=== PATIENT | female | born 1995 | race American Indian/Alaskan Native ===

== ENCOUNTER 2018-02-05 09:42 | Inpatient (IN) | payer MEDICAID ==
[2018-02-05] MEDS ORDERED: BRETHINE SUB-Q PRN (14:14)
[2018-02-05] MEDS ORDERED: BRETHINE IVP PRN (14:14)
[2018-02-05] MEDS ORDERED: XYLOCAINE 2% INFILTRATI ONE ×2 (14:14→22:18)
[2018-02-05] MEDS ORDERED: MINERAL OIL PO PRN (14:14)
[2018-02-05] MEDS ORDERED: ePHEDrine SULFATE IV PRN ×2 (14:14→22:29)
[2018-02-05 14:26] LABS: Hematocrit 39.8 % (30.3-42.9); Mean Corpuscular HGB Conc 33 % (30-34); Mean Corpuscular Volume 73 fl (79-97); Red Blood Count 5.44 M/mm3 (3.65-5.03)
[2018-02-05 14:27] LABS: Mean Corpuscular Hemoglobin 24 pg (28-32); Platelet Count 129 K/mm3 (140-440)
[2018-02-05] MEDS: STADOL IV PRN ×3 (14:35→20:55)
[2018-02-05] MEDS ORDERED: PITOCin/NS 30 UNIT/500ML 30 UNITS/500 ML BAG IV SCH ×2 (15:00→18:00)
[2018-02-05] MEDS ORDERED: LACTATED RINGERS 1,000 ML IV SCH ×2 (15:00→23:00)
--- NOTE | 2018-02-05 15:19 | Ultrasound Report ---
FINAL REPORT PROCEDURE: US OB BPP WO NON-STRESS TECHNIQUE: Sonographic evaluation for breathing, movement, tone, and amniotic fluid volume was performed. CPT 89414 HISTORY: BPP COMPARISON: No prior studies are available for comparison. FINDINGS: Amniotic fluid volume: Normal-score 2. At least one vertical pocket > 2 cm or more in vertical axis. breathing: Normal-score 2. movement: Score 0 tone: Normal- score 2. Score: 6 of 8. IMPRESSION: Decreased movement, with biophysical profile score of 6/8.
--- NOTE | 2018-02-05 15:21 | Ultrasound Report ---
FINAL REPORT PROCEDURE: US OB LIMITED TECHNIQUE: Real-time limited sonographic examination was performed for evaluation of fluid volume for each fetus with image documentation (1 or more fetuses). CPT 93471 HISTORY: BELLA COMPARISON: No prior studies are available for comparison. FINDINGS: FETUS IUP: Single living intrauterine . Position: Cephalic. Amniotic fluid volume: Amniotic fluid index measures 15.2 centimeters Heart rate and rhythm: 137 BPM, Regular . IMPRESSION: Amniotic fluid index measures 15.2 centimeters
--- NOTE | 2018-02-05 22:13 | History and Physical Report ---
History of Present Illness Date of examination: 02/05/18 Date of admission: 02/05/18 14:11 Chief complaint: contractions History of present illness: This is a 22 yo EDC 02/04/18 at 40=1 weeks came in for contractions. she was noted to be 1cm and rechecked and noted to be 2cm and pierre. She was admitted for NRFHT with variable decels and changing her cervix. 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 She is late to care patient with care initiating at at 17 weeks. She has a hx of chlamydia and anemia. Past History Past Medical History: hematologic disorders (anemia ) Past Surgical History: no surgical history [employer] History: chlamydia Family/Genetic History: none Social history: no significant social history, single. denies: smoking, alcohol abuse, prescription drug abuse - Obstetrical History Expected Date of Delivery: 02/04/18 Actual Gestation: 40 Week(s) 1 Day(s) : 1 Para: 0 Hx # Term Pregnancies: 0 Number of Pregnancies: 0 Spontaneous Abortions: 0 Induced : 0 Number of Living Children: 0 Medications and Allergies Allergies Allergy/AdvReac Type Severity Reaction Status Date / Time No Known Allergies Allergy Unverified 02/05/18 09:44 Home Medications Medication Instructions Recorded Confirmed Last Taken Type No Known Home Medications [No 02/05/18 02/05/18 Unknown History Reported Home Medications] Active Meds: Active Medications Butorphanol Tartrate (Stadol) 2 mg IV Q2H PRN PRN Reason: Pain , Severe (7-10) Last Admin: 02/05/18 20:55 Dose: 2 mg Ephedrine Sulfate (Ephedrine Sulfate) 10 mg IV Q2M PRN PRN Reason: Hypotension Lactated Ringer's (Lactated Ringers) 1,000 mls @ 125 mls/hr IV DIRECT NITISH Last Admin: 02/05/18 14:34 Dose: 125 mls/hr Oxytocin/Sodium Chloride (Pitocin/Ns 20 Unit/1000ml Drip) 20 units in 1,000 mls @ 125 mls/hr IV DIRECT NITISH Oxytocin/Sodium Chloride (Pitocin/Ns 30 Unit/500ml) 30 units in 500 mls @ 1 mls /hr IV TITR NITISH; Protocol Oxytocin/Sodium Chloride (Pitocin/Ns 30 Unit/500ml) 30 units in 500 mls @ 2 mls /hr IV TITR NITISH; Protocol Mineral Oil (Mineral Oil) 30 ml PO QHS PRN PRN Reason: Constipation Terbutaline Sulfate (Brethine) 0.25 mg SUB-Q ONCE PRN PRN Reason: Hyperstimulation/Hypertonicity Terbutaline Sulfate (Brethine) 0.25 mg IVP ONCE PRN PRN Reason: Hyperstimulation/Hypertonicity Review of Systems All systems: negative Genitourinary: contractions - Vital Signs Vital signs: Vital Signs Pulse BP 86 113/71 02/05/18 10:03 02/05/18 10:03 Temp Pulse Resp BP Pulse Ox 98.1 F 88 18 126/79 93 02/05/18 19:15 02/05/18 22:12 02/05/18 20:55 02/05/18 21:52 02/05/18 22:12 - Physical Exam Breasts: Positive: deferred Cardiovascular: Regular rate, Normal S1 Lungs: Positive: Clear to auscultation, Normal air movement Abdomen: Positive: normal appearance, soft, normal bowel sounds. Negative: distention, tenderness, guarding Genitourinary (Female): Positive: normal external genitalia, normal perenium Vulva: both: normal Vagina: Positive: normal moisture Uterus: Positive: normal size, normal contour Anus/Rectum: Positive: normal perianal skin Extremities: Positive: normal Deep Tendon Reflex Grade: Normal +2 - Obstetrical FHR: category 1 Cervical Dilatation: 4 Cervical Effacement Percentage: 80 station: -1 Uterine Contraction Pattern: Irregular Uterine Tone Measurement Phase: Contraction Uterine Contraction Intensity: Mild Results Result Diagrams: 02/05/18 14:00 Abnormal lab results 02/05/18 Range/Units 14:00 WBC 13.1 H (4.5-11.0) K/mm3 RBC 5.44 H (3.65-5.03) M/mm3 MCV 73 L (79-97) fl MCH 24 L (28-32) pg RDW 17.0 H (13.2-15.2) % Plt Count 129 L (140-440) K/mm3 All other labs normal. Ultrasound: report reviewed Assessment and Plan A/P IUP 40 +1 weeks, term, vertex admitted to labor and delivery labs sent, IV started GBS neg offer epidural consider pitocin for augmentation expect vaginal delivery
[2018-02-05] MEDS ORDERED: PHENERGAN PO PRN (22:18)
[2018-02-05] MEDS ORDERED: NARCAN 0.4 MG/1 ML IV PRN (22:18)
[2018-02-05] MEDS ORDERED: NARCAN 2 MG/2 ML IV PRN (22:29)
[2018-02-05] MEDS ORDERED: fentaNYL-BUPIV 2 MCG/ML-0.125% 200 MCG/100 ML BAG EPIDURAL SCH (23:00)
[2018-02-06] MEDS: PITOCin/NS 20 UNIT/1000ML DRIP 20 UNITS/1,000 ML BAG IV SCH ×2 (03:15→11:35)
[2018-02-06] MEDS ORDERED: ZOFRAN IV PRN (03:24)
[2018-02-06] MEDS ORDERED: TORADOL IV PRN (03:24)
[2018-02-06] MEDS ORDERED: NORCO 5/325 PO PRN (03:24)
[2018-02-06] MEDS ORDERED: TUCKS PAD TP PRN (03:24)
[2018-02-06] MEDS ORDERED: PHENERGAN PR PRN (03:24)
[2018-02-06] MEDS ORDERED: PHENERGAN PO PRN (03:24)
[2018-02-06] MEDS ORDERED: TYLENOL PO PRN (03:24)
[2018-02-06] MEDS ORDERED: PERCOCET 5/325 PO PRN (03:24)
[2018-02-06] MEDS ORDERED: BENADRYL PO PRN (03:24)
[2018-02-06] MEDS ORDERED: LANSINOH TP PRN (03:24)
--- NOTE | 2018-02-06 03:32 | Procedure Note ---
OB Delivery Note - Delivery Date of Delivery: 02/06/18 Surgeon: VENUS MCGILL Estimated blood loss: 300cc - Vaginal Delivery presentation: vertex Delivery position: OA Intrapartum events: none Delivery induction: none Delivery augmentation: rupture of membranes Delivery monitor: external FHT, external uterine, internal FHT Route of delivery: Indicators for instrumentation: nonreassuring FHR tracing Delivery placenta: spontaneous Delivery cord: 3 umbilical vessels Episiotomy: none Delivery laceration: 1st degree, other (bilateral labia ) Delivery repair: vicryl Anesthesia: epidural Delivery comments: Patient was noted to be C/c/+1 and commenced to pushing. During pushing she had some bradycardia so a vacuum applied and delivered a viable female at 0258. The shoulders were easily delivered. The apgars were 8 and 9. Weight was 6 pounds and 5 ounces. The placenta delivered at 0302 intact with 3 vessel cord. Survey of perineum revealed a 1st degree perineum remaired with 2-0 vicryl. Bilateral lac repaired with 3-0 vicryl. EBL 300 cc. Patient tolerated procedure well.
[2018-02-06] MEDS ORDERED: PITOCin/NS 20 UNIT/1000ML DRIP 20 UNITS/1,000 ML BAG IV SCH (04:00)
[2018-02-06] MEDS ORDERED: SODIUM CHLORIDE FLUSH SYRINGE 10 ML IV NR (04:00)
[2018-02-06] MEDS ORDERED: ePHEDrine SULFATE ONE (05:58)
[2018-02-06] MEDS ORDERED: NEO SYNEPHRINE/NS Syringe(OR USE) IV ONE ×3 (06:00→06:13)
[2018-02-06] MEDS: MOTRIN PO SCH ×3 (06:00→18:28)
[2018-02-06] MEDS ORDERED: SENOKOT S PO SCH (08:00)
[2018-02-06] MEDS ORDERED: DULCOLAX PR PRN (10:00)
[2018-02-06] MEDS ORDERED: PRENATAL VITAMIN PO SCH (10:00)
[2018-02-06] MEDS: COLACE PO SCH (10:26)
[2018-02-06] MEDS ORDERED: DERMOPLAST TP PRN (14:54)
[2018-02-06 15:16] LABS: Hematocrit 33.1 % (30.3-42.9); Hemoglobin 10.6 gm/dl (10.1-14.3)
[2018-02-06] MEDS ORDERED: MILK OF MAGNESIA PO PRN (22:00)
[2018-02-07] MEDS: COLACE PO SCH ×2 (00:15→12:05)
[2018-02-07] MEDS: MOTRIN PO SCH ×3 (00:16→12:05)
[2018-02-07] MEDS ORDERED: M-M-R II VACCINE SUB-Q ONE (06:00)
[2018-02-07] MEDS ORDERED: BOOSTRIX IM ONE (06:00)
[2018-02-07 09:10] VITALS: BP 107/69
--- NOTE | 2018-02-07 10:42 | Progress Note ---
Assessment and Plan PPD 1 s/p . Doing well. Plan for discharge on today. Subjective - Subjective Date of service: 02/07/18 Interval history: PPD 1 with no complaints Patient reports: appetite normal, voiding normally, pain well controlled, ambulating normally : doing well Objective - Vital Signs Latest vital signs: Vital Signs Temp Pulse Resp BP BP Pulse Ox 02/07/18 08:19 97.8 F 72 18 107/69 99 02/07/18 05:42 20 02/07/18 01:26 98.1 F 82 18 119/77 02/07/18 00:16 20 02/06/18 17:06 98.1 F 90 18 111/73 97 02/06/18 12:31 98.5 F 02/06/18 12:05 78 18 105/56 96 Intake and Output 02/06/18 02/07/18 02/07/18 22:59 06:59 14:59 Intake Total 360 240 Balance 360 240 Intake: Intake, Free Water 360 240 Other: # Voids Void 2 2 - Exam Breasts: Present: deferred Cardiovascular: Present: Regular rate, Normal S1, Normal S2 Lungs: Present: Clear to auscultation, Normal air movement Abdomen: Present: normal appearance, soft, normal bowel sounds Uterus: Present: normal, firm Extremities: Present: normal Deep Tendon Reflex Grade: Normal +2
--- NOTE | 2018-02-07 10:43 | Discharge Summary ---
Providers - Providers Date of Admission: 02/05/18 14:11 Date of discharge: 02/07/18 Attending physician: ELSIE REYES Primary care physician: ELSIE REYES Hospitalization Reason for admission: active labor Delivery: Episiotomy: none Laceration: none Other procedures: none Discharge diagnosis: IUP at term delivered baby: female Hospital course: unremarkable Condition at discharge: Good Disposition: DC-01 TO HOME OR SELFCARE Plan - Discharge Medications Prescriptions: HYDROcodone/ACETAMINOPHEN [[place] 5-325 Tablet] 1 each PO Q6H #15 tablet Ibuprofen [Motrin] 800 mg PO Q8HR PRN #30 tablet PRN Reason: Pain - Provider Discharge Summary Activity: routine, no sex for 6 weeks, no heavy lifting 4 weeks, no strenuous exercise Diet: routine Instructions: routine Additional instructions: [] Smoking cessation referral if applicable(refer to patient education folder for contact #) [] Refer to [facility]'s [facility] Booklet Call your doctor immediately for: * Fever > 100.5 * Heavy vaginal bleeding ( >1 pad per hour) * Severe persistent headache * Shortness of breath * Reddened, hot, painful area to leg or breast * Drainage or odor from incision. * Keep incision clean and dry at all times and follow doctor's instructions regarding bathing/showering - Follow up plan Follow up: ELSIE REYES MD [Primary Care Provider] - 6 Weeks
== END 2018-02-07 18:00 | disposition home or self-care (01) | DRG 775 ==
LOC: TRG 09:42 → LD 14:11 → OB 02-06 05:01
PROVIDERS: ADMIT Obstetrics & Gynecology; ATTEND Obstetrics & Gynecology
PROC: 10E0XZZ Delivery of Products of Conception, External Approach (ICD-10-PCS; principal; 2018-02-06)
PROC: 0HQ9XZZ Repair Perineum Skin, External Approach (ICD-10-PCS; 2018-02-06)
PROC: 00HU33Z Insertion of Infusion Device into Spinal Canal, Percutaneous Approach (ICD-10-PCS; 2018-02-06)
PROC: 3E0R3BZ Introduction of Anesthetic Agent into Spinal Canal, Percutaneous Approach (ICD-10-PCS; 2018-02-06)
PROC: 3E0234Z Introduction of Serum, Toxoid and Vaccine into Muscle, Percutaneous Approach (ICD-10-PCS; 2018-02-07)
DX: O76 Abnormality in fetal heart rate and rhythm complicating labor and delivery (principal); Z3A.40 40 weeks gestation of pregnancy; Z86.19 Personal history of other infectious and parasitic diseases; O70.0 First degree perineal laceration during delivery; Z37.0 Single live birth; Z23 Encounter for immunization
CPT/HCPCS: 36415; 76815; 76819; 85014; 85018; 85027; 86592; 86850; 86900; 86901; 88307; 99211; A6250; G0463; J0595; J2370; J2590; J7120